=== PATIENT | female | born 1965 | race Caucasian/White ===

== ENCOUNTER 2016-10-11 16:01 | Emergency (ER) | payer OTHER ==
--- NOTE | 2016-10-11 18:44 | DIAGNOSTIC IMAGING REPORT ---
PROCEDURE: CT ABDOMEN/PELVIS W/O CONTRAST INDICATION: FLANK PAIN TECHNIQUE: Noncontrast axial images were obtained of the entire abdomen and pelvis with sagittal and coronal reformations. COMPARISON: None. FINDINGS: ABDOMEN: 2.5 mm mid left ureteral calculus with mild left hydroureteronephrosis. Mild left perinephric edema. No additional urinary calculi. Lung base are clear. Normal heart size. Hepatomegaly (20 cm) with diffuse steatosis. Contracted gallbladder. Pancreas, spleen and adrenal glands are normal. Normal abdominal aorta. Mild descending sigmoid diverticulosis. Normal appendix. Small hiatal hernia. PELVIS: Mild sigmoid diverticulosis. Uterus and adnexa are normal. Tiny air collection in the bladder lumen, possibly from instrumentation. Left buttock calcified injection granuloma. Mild degenerative changes of the spine. IMPRESSION: 1. 2.5 mm mid left ureteral calculus with mild left hydroureteronephrosis 2. Hepatomegaly and steatosis 3. Diverticulosis 4. Results discussed with Dr. Heart All CT scans at this facility use dose modulation, iterative reconstruction, and/or weight-based dosing when appropriate to reduce radiation dose to as low as reasonably achievable.
--- NOTE | 2016-10-11 19:00 | ED ORDER SUMMARY ---
..... Patient: JENA OJEDA OrderSheet [facility] VisitID: [id number] [place] [address] 51y, F Registration Date/Time: 10/11/2016 ORDER SHEET Weight: 86.1 kg (measured) Allergies: Ceclor, Penicillin GENERAL ORDERS: CBC w Diff Urgent (16:38 10/11/2016 Christi El) (Ack 16:47 LNations ER Tech1) (16:50 Adam R.N.) CMP Urgent (16:38 10/11/2016 Christi El) (Ack 16:47 LNations ER Tech1) (16:50 Adam R.N.) UA-Culture if indicated Urgent (16:38 10/11/2016 Christi El) (Ack 16:47 LNations ER Tech1) (18:15 Adam R.N.) CT Abd/Pel wo Cont (Left) Urgent (18:04 10/11/2016 Christi El) (Ack 18:13 LNations ER Tech1) (18:39 MCampbell) MEDICATION ORDERS: Flomax PO 0.4 mg (Do not crush or chew, NOW) (18:44 10/11/2016 Christi El) (Ack 18:50 Adam R.N.) (19:00 Adam R.N.) IV FLUIDS: IV NS : initial bolus none -, then 1000 mL/hr for X1 (NOW) (16:38 10/11/2016 Christi El) (16:56 Adam R.N.) Toradol IV 30 mg (NOW) (18:04 10/11/2016 Christi El) (Ack 18:13 Adam R.N.) ORDER SHEET NOTES: [Electronically signed by Darion Heart Dr. (19:05 10/11/2016)] [Electronically signed by Darian Wylie R.N. (19:12 10/11/2016)] [Electronically locked/signed by Darian Wylie R.N. (19:10/11/2016)]
--- NOTE | 2016-10-11 19:00 | ED NURSING NOTES ---
Clinical Report - Nurses [facility] [address] [place] [address] 10/11/2016 16:02 Patient: JENA OJEDA TRIAGE Triage time 16:18. Acuity: LEVEL 3. Chief Complaint: ABDOMINAL PAIN and NAUSEA. --16:25 Darian Wylie R.N. 16:18 10/11/16. BP: 135/76. HR: 73. RR: 16. O2 saturation: 96%. Temp: 98.9 F (oral). Pain level now: 01/02. --16:25 Darian Wylie R.N. Weight: 86.1 kg measured. Height/Length: 64 inches Measured. BMI: 32.6. --16:23 Darian Wylie R.N. Medications Lisinopril-Hydrochlorothiazide Oral. --16:20 Darian Wylie R.N. Norvasc Oral. --16:20 Darian Wylie R.N. Claritin Oral. --16:20 Darian Wylie R.N. Omeprazole Oral. --16:20 Darian Wylie R.N. Vitamin D Oral. --16:20 Darian Wylie R.N. Medication/allergy information source: the patient. --16:25 Darian Wylie R.N. Allergies Ceclor. --16:21 Darian Wylie R.N. Penicillin. --16:21 Darian Wylie R.N. History Arrived by private vehicle. Historian: patient. Accompanied by daughter. ( LLQ abdominal pain after eating lunch today, constant sharp pain non-radiating. nausea but no vomiting or diarrhea. Denies urinary discomfort.). This started today. Onset. (4 1/2 hours ago). She has had nausea and abdominal pain. Last oral intake by patient was lunch. 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 SURGERY HX: Dilatation & Curettage. SOCIAL HX: Never smoker. Occasional alcohol use; consumes beer occasionally and wine by the glass. No infectious disease exposure. --16:25 Darian Wylie R.N. PROBLEMS: Multiple Sclerosis. Hypertension. --16:21 Darian Wylie R.N. Interventions ID band on patient. To room. --16:25 Darian Wylie R.N. PHYSICAL ASSESSMENT Ambulatory to room. GENERAL / NEURO / PSYCH: Alert. Oriented X 4. Appears in no acute distress. Appears in pain. HEENT: Mucous membranes are pink. RESPIRATORY: Respirations not labored. Breath sounds within normal limits. CVS: Capillary refill less than 2 seconds. GI / : The patient has had nausea. Obesity. Abdomen soft. Bowel sounds within normal limits. SKIN: Skin is warm and dry. --16:25 Darian Wylie R.N. NURSING PROGRESS NOTES Patient gowned. Head of bed elevated. Patient identifiers checked. Call light placed in reach. Side rails up x 1. Bed placed in lowest position. Brakes of bed on. Patient ready for evaluation- chart flagged and ED physician and SOUS CHEF notified. --16:26 Darian Wylie R.N. 16:50 10/11/2016 Site #1 started via IV in the right antecubital space with an 20g angiocath; one attempt. Blood drawn: rainbow set. Labeled in the presence of the patient and sent to the lab. Saline lock flushed with 10 mL saline. --16:55 Darian Wylie R.N. 16:56 10/11/2016 Started IV Fluids IV NS (Saline); bolus of 1000 mL over 1 hour(s) via site #1 via IV pump. Allergies verified and confirmed 5 rights. IV patency established. IV site checked: no pain, redness, or swelling. IV flushed thoroughly pre- and post-medication administration. --16:56 Darian Wylie R.N. 18:13 10/11/2016 IV Fluids IV NS Discontinued: bag #1 infused. Total amount infused: 1000 mL. IV patency established. IV site checked: no pain, redness, or swelling. IV flushed thoroughly. --18:24 Darian Wylie R.N. 18:15 10/11/2016 Toradol IVP 30 mg given over 2 minute(s) via site #1. Allergies verified and confirmed 5 rights. IV patency established. IV site checked: no pain, redness, or swelling. IV flushed thoroughly pre- and post-medication administration. IVP given by RN. --18:15 Darian Wylie R.N. ( left back/flank pain present; abdominal pain have subsided; no nausea). Patient waiting for CT results. --18:23 Darian Wylie R.N. 18:16 10/11/16. BP: 123/58 taken on the left arm, via an automated monitor, while sitting. HR: 72. RR: 18. O2 saturation: 97%. Pain level now: 11/01. --18:23 Darian Wylie R.N. 18:59 10/11/2016 Flomax (Tamsulosin HCl) PO Capsules 0.4 mg given. Allergies verified and confirmed 5 rights. --19:00 Darian Wylie R.N. Reassessment after fluids administered. She is calm and resting quietly. Overall patient status is improved- she states feels better. ( flank pain have subsided now, states feeling a lot better). --19:01 Darian Wylie R.N. 19:06 10/11/2016 Site #1 removed upon discharge. Catheter intact. Bandaid applied. --19:11 Darian Wylie R.N. DISPOSITION / DISCHARGE Condition at departure: improved. No learning barriers present. Discharge instructions provided and reviewed with the patient. Reviewed medication(s) side effects, precautions, dosing and course information. Prescription(s) given to the patient. Reviewed referral to a primary care physician for followup. Work note given. Patient verbalized understanding. Written instructions provided in Kyrgyz. The patient was discharged home and accompanied by family. She left the Emergency Department ambulatory and via private vehicle. Spouse driving. --19:10 Darian Wylie R.N. 19:09 10/11/16. BP: 127/82. HR: 78. RR: 14. O2 saturation: 100%. Temp: 98.3 F. Pain level now: 05/04. --19:10 Darian Wylie R.N. Departure time: :11. --19:11 Darian Wylie R.N. Locked/Released at 10/11/2016 19:12 by Darian Wylie R.N.
--- NOTE | 2016-10-11 19:00 | ED CLINICAL REPORT ---
Clinical Report - Physicians/Mid Levels [facility] [address] [place] [address] 10/11/2016 16:02 Patient: JENA OJEDA Time Seen: 16:12; initial patient contact. Arrived- By private vehicle. Historian- patient. HISTORY OF PRESENT ILLNESS Chief Complaint: ABDOMINAL PAIN. At its maximum, severity described as moderate. When seen in the E.D., severity described as moderate. Modifying factors. Not worsened by anything. Not relieved by anything. It is described as sharp. No radiation. It is described as located in the left lower quadrant. This started about 3 1/2 hours ago. The patient has had nausea. No vomiting or diarrhea. Similar symptoms previously: None. Recent medical care: Not recently seen/assessed. REVIEW OF SYSTEMS No constipation, difficulty with urination, pain with urination or fever. She has had chills. All systems otherwise negative, except as recorded above. PAST HISTORY Multiple Sclerosis. Hypertension. Medications: Vitamin D Oral. Omeprazole Oral. Claritin Oral. Norvasc Oral. Lisinopril-Hydrochlorothiazide Oral. Allergies: Ceclor. Penicillin. SOCIAL HISTORY Never smoker. Occasional alcohol use. No drug use. ADDITIONAL NOTES The nursing notes have been reviewed. PHYSICAL EXAM Vital Signs: 10/11/2016 16:18 BP: 135/76. HR: 73. RR: 16. O2 saturation: 96%. Temp: 98.9 F. Pain level now: 9/10. Have been reviewed as normal. Appearance: Alert. Oriented X3. No acute distress. Eyes: Eyes normal inspection. ENT: Dry mucous membranes present. CVS: Normal heart rate and rhythm. Heart sounds normal. Respiratory: No respiratory distress. Breath sounds normal. Abdomen: Soft. Moderate tenderness in the left side of the abdomen with guarding present. No rebound tenderness. Bowel sounds normal. No organomegaly. No mass. Back: Moderate CVA tenderness on the left. Skin: Skin warm and dry. Normal skin color. Neuro: Oriented X 3. LABS, X-RAYS, AND EKG Abdominal CT: 1. 2.5 mm mid left ureteral calculus with mild left hydroureteronephrosis 2. Hepatomegaly and steatosis 3. Diverticulosis. Study type: renal stone evaluation. Abdominal CT performed without contrast. The study was independently viewed by me, interpreted by the radiologist and discussed with the radiologist. Prior studies were not available for comparison. Interpretation time: 19:02. Laboratory Tests: UA-Culture if indicated: (VICKI: 10/11/2016 18:00) ( [facility] 10/11/[place] 18:39) Final results Test Result Flag Units (Reference) URINE COLOR YELLOW URINE APPEARANCE CLEAR URINE GLUCOSE NEGATIVE (NEGATIVE) URINE BILIRUBIN NEGATIVE (NEGATIVE) URINE KETONE NEGATIVE (NEGATIVE) URINE SPECIFIC GRAVITY 1.015 (1.010-1.030) URINE PH 7.0 (5.0-8.0) URINE PROTEIN NEGATIVE (NEGATIVE) URINE UROBILINOGEN 0.2 EU/dL (0.2-1.0) URINE NITRITE NEGATIVE (NEGATIVE) URINE BLOOD 2+ (NEGATIVE) URINE LEUK ESTERASE NEGATIVE (NEGATIVE) URINE RBC 10-25 rbc/hpf (0-1) URINE WBC 1-3 wbc/hpf (0-1) URINE EPITHELIAL CELLS 1-3 EPI/hpf (0-5) URINE BACTERIA MANY (4+) (NONE SEEN) URINE COMMENT CULTURE INDICATED URINE CULTURES ARE SET-UP BASED ON THE FOLLOWING CRITERIA:POSITIVE NITRITEPOSITIVE LEUKOCYTE ESTERASEGREATER THAN 10 WHITE BLOOD CELLSMODERATE (2+) OR GREATER BACTERIA CBC w Diff: (VICKI: 10/11/2016 16:50) ( [facility] 10/11/2016 17:06) Final results Test Result Flag Units (Reference) WHITE BLOOD COUNT 8.6 K/uL (4.5-11.5) RED BLOOD COUNT 4.55 M/uL (4.00-5.20) HEMOGLOBIN 12.4 gm/dL (12.0-16.0) HEMATOCRIT 36.8 % (36.0-46.0) MEAN CELL VOLUME 81 fL (80-100) MEAN CORPUSCULAR HGB 27 pg (26-34) MEAN CORPUSCULAR HGB CONC 34 g/dL (31-37) RED CELL DISTRIBUTION WIDTH 13.4 % (11.6-14.8) PLATELET COUNT 248 K/uL (150-400) LYMPH % 17.2 L % (25-40) MONO % 2.0 L % (3-14) GRANULOCYTE % 80.8 (53-90) CMP: (VICKI: 10/11/2016 16:50) ( [facility] 10/11/2016 17:22) Final results Test Result Flag Units (Reference) GLUCOSE 131 H mg/dL (70-110) BUN 23 H mg/dL (7-18) CREATININE 1.1 mg/dL (0.6-1.3) Estimated GFR 55.66 mL/min Estimated GFR- >60 mL/min Note: Persistent reduction over 3 months in eGFR<60 mL/min/1.73 m2 defines CKD. Patients with eGFR values>=60 mL/min/1.73 m2 may also have CKD if evidence ofpersistent proteinuria. Additional information may be foundat www.kidney.org. SODIUM 142 mmol/L (136-145) POTASSIUM 3.7 mmol/L (3.5-5.1) CHLORIDE 102 mmol/L (98-107) CARBON DIOXIDE 31 mmol/L (21-32) CALCIUM 10.5 H mg/dL (8.5-10.1) TOTAL PROTEIN 8.0 g/dL (6.4-8.2) ALBUMIN 4.0 g/dL (3.3-5.0) BILIRUBIN, TOTAL 0.5 mg/dL (0.0-1.0) ALKALINE PHOSPHATASE 85 U/L (46-116) AST (SGOT) 27 U/L (15-37) ALT (SGPT) 47 U/L (12-78) . PROGRESS AND PROCEDURES Disposition: Discharged home in good and improved condition. Condition: good. CLINICAL IMPRESSION Ureterolithiasis in the left ureter with renal colic and hydronephrosis. INSTRUCTIONS Your Current Medications: CONTINUE TAKING THE FOLLOWING MEDICATIONS: Claritin Oral. Lisinopril-Hydrochlorothiazide Oral. Norvasc Oral. Omeprazole Oral. Vitamin D Oral. Prescription Medications: Hydrocodone/APAP 5mg / 325mg: take 1 orally every 6 hours as needed for pain. Dispense fifteen (15). No refill. Zofran (orally disintegrating tablets) 4 mg: take 1 orally every 6 hours as needed for nausea and vomiting. Dispense ten (10). No refill. Substitution is permissible. Flomax 0.4 mg: take 1 orally every 24 hours. Take dose every day 30 minutes after the same meal. Dispense fifteen (15). No refills. Substitution is permissible. Follow-up: Follow up with your doctor in about two days. Call for an appointment. Blood pressure screening was not performed during this visit because the patient has an active diagnosis of hypertension. (Electronically signed by Darion Heart Dr. 10/11/2016 19:06)
--- NOTE | 2016-10-11 19:00 | ED NURSING NOTES ---
Clinical Report - Nurses [facility] [address] [place] [address] 10/11/2016 16:02 Patient: JENA OJEDA TRIAGE Triage time 16:18. Acuity: LEVEL 3. Chief Complaint: ABDOMINAL PAIN and NAUSEA. --16:25 Darian Wylie R.N. 16:18 10/11/16. BP: 135/76. HR: 73. RR: 16. O2 saturation: 96%. Temp: 98.9 F (oral). Pain level now: 01/02. --16:25 Darian Wylie R.N. Weight: 86.1 kg measured. Height/Length: 64 inches Measured. BMI: 32.6. --16:23 Darian Wylie R.N. Medications Lisinopril-Hydrochlorothiazide Oral. --16:20 Darian Wylie R.N. Norvasc Oral. --16:20 Darian Wylie R.N. Claritin Oral. --16:20 Darian Wylie R.N. Omeprazole Oral. --16:20 Darian Wylie R.N. Vitamin D Oral. --16:20 Darian Wylie R.N. Medication/allergy information source: the patient. --16:25 Darian Wylie R.N. Allergies Ceclor. --16:21 Darian Wylie R.N. Penicillin. --16:21 Darian Wylie R.N. History Arrived by private vehicle. Historian: patient. Accompanied by daughter. ( LLQ abdominal pain after eating lunch today, constant sharp pain non-radiating. nausea but no vomiting or diarrhea. Denies urinary discomfort.). This started today. Onset. (4 1/2 hours ago). She has had nausea and abdominal pain. Last oral intake by patient was lunch. 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 SURGERY HX: Dilatation & Curettage. SOCIAL HX: Never smoker. Occasional alcohol use; consumes beer occasionally and wine by the glass. No infectious disease exposure. --16:25 Darian Wylie R.N. PROBLEMS: Multiple Sclerosis. Hypertension. --16:21 Darian Wylie R.N. Interventions ID band on patient. To room. --16:25 Darian Wylie R.N. PHYSICAL ASSESSMENT Ambulatory to room. GENERAL / NEURO / PSYCH: Alert. Oriented X 4. Appears in no acute distress. Appears in pain. HEENT: Mucous membranes are pink. RESPIRATORY: Respirations not labored. Breath sounds within normal limits. CVS: Capillary refill less than 2 seconds. GI / : The patient has had nausea. Obesity. Abdomen soft. Bowel sounds within normal limits. SKIN: Skin is warm and dry. --16:25 Darian Wylie R.N. NURSING PROGRESS NOTES Patient gowned. Head of bed elevated. Patient identifiers checked. Call light placed in reach. Side rails up x 1. Bed placed in lowest position. Brakes of bed on. Patient ready for evaluation- chart flagged and ED physician and SHUT OFF WORKER notified. --16:26 Darian Wylie R.N. 16:50 10/11/2016 Site #1 started via IV in the right antecubital space with an 20g angiocath; one attempt. Blood drawn: rainbow set. Labeled in the presence of the patient and sent to the lab. Saline lock flushed with 10 mL saline. --16:55 Darian Wylie R.N. 16:56 10/11/2016 Started IV Fluids IV NS (Saline); bolus of 1000 mL over 1 hour(s) via site #1 via IV pump. Allergies verified and confirmed 5 rights. IV patency established. IV site checked: no pain, redness, or swelling. IV flushed thoroughly pre- and post-medication administration. --16:56 Darian Wylie R.N. 18:13 10/11/2016 IV Fluids IV NS Discontinued: bag #1 infused. Total amount infused: 1000 mL. IV patency established. IV site checked: no pain, redness, or swelling. IV flushed thoroughly. --18:24 Darian Wylie R.N. 18:15 10/11/2016 Toradol IVP 30 mg given over 2 minute(s) via site #1. Allergies verified and confirmed 5 rights. IV patency established. IV site checked: no pain, redness, or swelling. IV flushed thoroughly pre- and post-medication administration. IVP given by RN. --18:15 Darian Wylie R.N. ( left back/flank pain present; abdominal pain have subsided; no nausea). Patient waiting for CT results. --18:23 Darian Wylie R.N. 18:16 10/11/16. BP: 123/58 taken on the left arm, via an automated monitor, while sitting. HR: 72. RR: 18. O2 saturation: 97%. Pain level now: 11/01. --18:23 Darian Wylie R.N. 18:59 10/11/2016 Flomax (Tamsulosin HCl) PO Capsules 0.4 mg given. Allergies verified and confirmed 5 rights. --19:00 Darian Wylie R.N. Reassessment after fluids administered. She is calm and resting quietly. Overall patient status is improved- she states feels better. ( flank pain have subsided now, states feeling a lot better). --19:01 Darian Wylie R.N. 19:06 10/11/2016 Site #1 removed upon discharge. Catheter intact. Bandaid applied. --19:11 Darian Wylie R.N. DISPOSITION / DISCHARGE Condition at departure: improved. No learning barriers present. Discharge instructions provided and reviewed with the patient. Reviewed medication(s) side effects, precautions, dosing and course information. Prescription(s) given to the patient. Reviewed referral to a primary care physician for followup. Work note given. Patient verbalized understanding. Written instructions provided in Moldovan. The patient was discharged home and accompanied by family. She left the Emergency Department ambulatory and via private vehicle. Spouse driving. --19:10 Darian Wylie R.N. 19:09 10/11/16. BP: 127/82. HR: 78. RR: 14. O2 saturation: 100%. Temp: 98.3 F. Pain level now: 05/04. --19:10 Darian Wylie R.N. Departure time: :11. --19:11 Darian Wylie R.N. Locked/Released at 10/11/2016 19:12 by Darian Wylie R.N.
--- NOTE | 2016-10-11 19:00 | ED ORDER SUMMARY ---
..... Patient: JENA OJEDA OrderSheet [facility] VisitID: [id number] [place] [address] 51y, F Registration Date/Time: 10/11/2016 ORDER SHEET Weight: 86.1 kg (measured) Allergies: Ceclor, Penicillin GENERAL ORDERS: CBC w Diff Urgent (16:38 10/11/2016 Christi El) (Ack 16:47 LNations ER Tech1) (16:50 Adam R.N.) CMP Urgent (16:38 10/11/2016 Christi El) (Ack 16:47 LNations ER Tech1) (16:50 Adam R.N.) UA-Culture if indicated Urgent (16:38 10/11/2016 Christi El) (Ack 16:47 LNations ER Tech1) (18:15 Adam R.N.) CT Abd/Pel wo Cont (Left) Urgent (18:04 10/11/2016 Christi El) (Ack 18:13 LNations ER Tech1) (18:39 MCampbell) MEDICATION ORDERS: Flomax PO 0.4 mg (Do not crush or chew, NOW) (18:44 10/11/2016 Christi El) (Ack 18:50 Adam R.N.) (19:00 Adam R.N.) IV FLUIDS: IV NS : initial bolus none -, then 1000 mL/hr for X1 (NOW) (16:38 10/11/2016 Christi El) (16:56 Adam R.N.) Toradol IV 30 mg (NOW) (18:04 10/11/2016 Christi El) (Ack 18:13 Adam R.N.) ORDER SHEET NOTES: [Electronically signed by Darion Heart Dr. (19:05 10/11/2016)] [Electronically signed by Darian Wylie R.N. (19:12 10/11/2016)] [Electronically locked/signed by Darian Wylie R.N. (19:10/11/2016)]
--- NOTE | 2016-10-11 19:12 | ED MAR SUMMARY ---
..... Medication Administration Record [facility] [address] [place] [address] Patient: JENA OJEDA Visit ID: [id number] 51y, F Weight: 86.1 kg Height/Length: 64 in BMI: 32.6 ALLERGIES: Penicillin, Ceclor Start 16:56 10/11/2016 Darian Wylie R.N., Stop 18:13 10/11/2016 Darian Wylie R.N. Medication Administered: IV NS (SALINE), Dose: IV Fluids, Bolus: 1000 mL over 1 hour(s), Site: #1 right AC. Medication Ordered: IV NS : initial bolus none -, then 1000 mL/hr for X1 (NOW). Given 18:15 10/11/2016 Darian Wylie R.N. Medication Administered: TORADOL [IVP], Dose: 30 mg IVP over 2 minute(s), Site: #1 right AC. Medication Ordered: Toradol IV 30 mg (NOW). Given 18:59 10/11/2016 Darian Wylie R.N. Medication Administered: FLOMAX [PO] (TAMSULOSIN HCL), Dose: 0.4 mg Capsules PO. Medication Ordered: Flomax PO 0.4 mg (Do not crush or chew, NOW).
--- NOTE | 2016-10-11 19:12 | ED DISCHARGE INSTRUCTIONS ---
Patient: JENA OJEDA General Instructions [facility] VisitID: [id number] [place] [address] 51y, F Registration Date/Time: 10/11/2016 Ureterolithiasis in the left ureter with renal colic and hydronephrosis. INSTRUCTIONS Your Current Medications: CONTINUE TAKING THE FOLLOWING MEDICATIONS: Claritin Oral. Lisinopril-Hydrochlorothiazide Oral. Norvasc Oral. Omeprazole Oral. Vitamin D Oral. Prescription Medications: Hydrocodone/APAP 5mg / 325mg: take 1 orally every 6 hours as needed for pain. Dispense fifteen (15). No refill. Zofran (orally disintegrating tablets) 4 mg: take 1 orally every 6 hours as needed for nausea and vomiting. Dispense ten (10). No refill. Substitution is permissible. Flomax 0.4 mg: take 1 orally every 24 hours. Take dose every day 30 minutes after the same meal. Dispense fifteen (15). No refills. Substitution is permissible. Follow-up: Follow up with your doctor in about two days. Call for an appointment. Blood pressure screening was not performed during this visit because the patient has an active diagnosis of hypertension. ADDITIONAL INFORMATION Kidney Stone (W/ Colic) The sharp cramping pain and nausea/vomiting that you have is due to a small stone which has formed in the kidney and is now passing down a narrow tube (ureter) on its way to your bladder. Once it reaches your bladder, the pain will stop. The stone may pass in your urine stream in one piece. [The size may be 1/16" to 1/4" (1-6mm)]. Or, the stone may also break up into lily fragments which you may not even notice. Once you have had a kidney stone, you are at risk for developing another one in the future. Home Care: Drink plenty of fluids (at least 8 to 10 glasses of water a day). Most stones will pass on their own, but may take from a few hours to a few days. Sometimes the stone is too large to pass by itself and special methods will have to be used to remove the stone. Each time you urinate, do so in a jar. Pour the urine from the jar through the strainer and into the toilet. Continue doing this until 24 hours after your pain stops. By then, if there was a kidney stone, it should pass from your bladder. Some stones dissolve into sand-like particles and pass right through the strainer. In that case, you wont ever see a stone. Save any stone that you find in the strainer and bring it to your doctor for analysis. It may be possible to prevent certain types of stones from forming. Therefore, it is important to know what kind of stone you have. Try to stay as active as possible since this will help the stone pass. Do not stay in bed unless your pain prevents you from getting up. You may notice a red, pink or brown color to your urine. This is normal while passing a kidney stone. Follow Up with your doctor or return to this facility if the pain lasts more than 48 hours. Get Prompt Medical Attention if any of the following occur: Pain that is not controlled by the medicine given Repeated vomiting or unable to keep down fluids Weakness, dizziness or fainting Fever of 100.4F (38C) or higher, or as directed by your healthcare provider Passage of solid red or brown urine (can't see through it) or urine with lots of blood clots Unable to pass urine for 8 hours and increasing bladder pressure Hydrocodone Bitartrate, Acetaminophen Oral tablet What is this medicine? ACETAMINOPHEN; HYDROCODONE (a set a DOMINIQUE dmitri fen; aleida droe KOE done) is a pain reliever. It is used to treat mild to moderate pain. How should I use this medicine? Take this medicine by mouth. Swallow it with a full glass of water. Follow the directions on the prescription label. If the medicine upsets your stomach, take the medicine with food or milk. Do not take more than you are told to take. Talk to your video manager regarding the use of this medicine in children. This medicine is not approved for use in children. What side effects may I notice from receiving this medicine? Side effects that you should report to your doctor or health career development director as soon as possible: allergic reactions like skin rash, itching or hives, swelling of the face, lips, or tongue breathing problems confusion feeling faint or lightheaded, falls stomach pain yellowing of the eyes or skin Side effects that usually do not require medical attention (report to your doctor or health career development director if they continue or are bothersome): nausea, vomiting stomach upset What may interact with this medicine? alcohol antihistamines isoniazid medicines for depression, anxiety, or psychotic disturbances medicines for sleep muscle relaxants naltrexone narcotic medicines (opiates) for pain phenobarbital ritonavir tramadol What if I miss a dose? If you miss a dose, take it as soon as you can. If it is almost time for your next dose, take only that dose. Do not take double or extra doses. Where should I keep my medicine? Keep out of the reach of children. This medicine can be abused. Keep your medicine in a safe place to protect it from theft. Do not share this medicine with anyone. Selling or giving away this medicine is dangerous and against the law. Store at room temperature between 15 and 30 degrees C (59 and 86 degrees F). Protect from light. Keep container tightly closed. Throw away any unused medicine after the expiration date. Discard unused medicine and used packaging carefully. Pets and children can be harmed if they find used or lost packages. What should I tell my health care provider before I take this medicine? They need to know if you have any of these conditions: brain tumor Crohn's disease, inflammatory bowel disease, or ulcerative colitis drink more than 3 alcohol-containing drinks per day drug abuse or addiction head injury heart or circulation problems kidney disease or problems going to the bathroom liver disease lung disease, asthma, or breathing problems an unusual or allergic reaction to acetaminophen, hydrocodone, other opioid analgesics, other medicines, foods, dyes, or preservatives or trying to get breast-feeding What should I watch for while using this medicine? Tell your doctor or health career development director if your pain does not go away, if it gets worse, or if you have new or a different type of pain. You may develop tolerance to the medicine. Tolerance means that you will need a higher dose of the medicine for pain relief. Tolerance is normal and is expected if you take the medicine for a long time. Do not suddenly stop taking your medicine because you may develop a severe reaction. Your body becomes used to the medicine. This does NOT mean you are addicted. Addiction is a behavior related to getting and using a drug for a non-medical reason. If you have pain, you have a medical reason to take pain medicine. Your doctor will tell you how much medicine to take. If your doctor wants you to stop the medicine, the dose will be slowly lowered over time to avoid any side effects. You may get drowsy or dizzy when you first start taking the medicine or change doses. Do not drive, use machinery, or do anything that may be dangerous until you know how the medicine affects you. Stand or sit up slowly. There are different types of narcotic medicines (opiates) for pain. If you take more than one type at the same time, you may have more side effects. Give your health care provider a list of all medicines you use. Your doctor will tell you how much medicine to take. Do not take more medicine than directed. Call emergency for help if you have problems breathing. The medicine will cause constipation. Try to have a bowel movement at least every 2 to 3 days. If you do not have a bowel movement for 3 days, call your doctor or health career development director. Too much acetaminophen can be very dangerous. Do not take Tylenol (acetaminophen) or medicines that contain acetaminophen with this medicine. Many non-prescription medicines contain acetaminophen. Always read the labels carefully. Ondansetron Oral disintegrating tablet What is this medicine? ONDANSETRON (on LAKIA se dom) is used to treat nausea and vomiting caused by chemotherapy. It is also used to prevent or treat nausea and vomiting after surgery. How should I use this medicine? These tablets are made to dissolve in the mouth. Do not try to push the tablet through the foil backing. With dry hands, peel away the foil backing and gently remove the tablet. Place the tablet in the mouth and allow it to dissolve, then swallow. While you may take these tablets with water, it is not necessary to do so. Talk to your video manager regarding the use of this medicine in children. Special care may be needed. What side effects may I notice from receiving this medicine? Side effects that you should report to your doctor or health career development director as soon as possible: allergic reactions like skin rash, itching or hives, swelling of the face, lips, or tongue breathing problems dizziness fast or irregular heartbeat feeling faint or lightheaded, falls fever and chills swelling of the hands and feet tightness in the chest Side effects that usually do not require medical attention (report to your doctor or health career development director if they continue or are bothersome): constipation or diarrhea headache What may interact with this medicine? Do not take this medicine with any of the following medications: -apomorphine -cisapride -dofetilide -dronedarone -pimozide -thioridazine -ziprasidone This medicine may also interact with the following medications: -carbamazepine -phenytoin -rifampicin -tramadol -other medicines that prolong the QT interval (cause an abnormal heart rhythm) What if I miss a dose? If you miss a dose, take it as soon as you can. If it is almost time for your next dose, take only that dose. Do not take double or extra doses. Where should I keep my medicine? Keep out of the reach of children. Store between 2 and 30 degrees C (36 and 86 degrees F). Throw away any unused medicine after the expiration date. What should I tell my health care provider before I take this medicine? They need to know if you have any of these conditions: heart disease history of irregular heartbeat liver disease low levels of magnesium or potassium in the blood an unusual or allergic reaction to ondansetron, granisetron, other medicines, foods, dyes, or preservatives or trying to get breast-feeding What should I watch for while using this medicine? Check with your doctor or health career development director as soon as you can if you have any sign of an allergic reaction. You have been given the following additional information: Kidney Stone W/ Colic Hydrocodone Bitartrate, Acetaminophen Oral tablet Ondansetron Oral disintegrating tablet (Electronically signed by Darion [facility] Dr. 10/11/2016 19:06)
--- NOTE | 2016-10-11 19:12 | ED MAR SUMMARY ---
..... Medication Administration Record [facility] [address] [place] [address] Patient: JENA OJEDA Visit ID: [id number] 51y, F Weight: 86.1 kg Height/Length: 64 in BMI: 32.6 ALLERGIES: Penicillin, Ceclor Start 16:56 10/11/2016 Darian Wylie R.N., Stop 18:13 10/11/2016 Darian Wylie R.N. Medication Administered: IV NS (SALINE), Dose: IV Fluids, Bolus: 1000 mL over 1 hour(s), Site: #1 right AC. Medication Ordered: IV NS : initial bolus none -, then 1000 mL/hr for X1 (NOW). Given 18:15 10/11/2016 Darian Wylie R.N. Medication Administered: TORADOL [IVP], Dose: 30 mg IVP over 2 minute(s), Site: #1 right AC. Medication Ordered: Toradol IV 30 mg (NOW). Given 18:59 10/11/2016 Darian Wylie R.N. Medication Administered: FLOMAX [PO] (TAMSULOSIN HCL), Dose: 0.4 mg Capsules PO. Medication Ordered: Flomax PO 0.4 mg (Do not crush or chew, NOW).
--- NOTE | 2016-10-11 19:13 | ED MED RECONCILIATION SUMMARY ---
Patient: JENA OJEDA Medication Reconciliation Report [facility] VisitID: [id number] [address] [place] [address] 51y, F Registration Date/Time: 10/11/2016 Weight: 86.1 kg Height/Length: 64 in. BMI: 32.6 ALLERGIES: Ceclor, Penicillin The patient's Home Medications are listed below: CONTINUE TAKING THE FOLLOWING MEDICATIONS: Claritin Oral Lisinopril-Hydrochlorothiazide Oral Norvasc Oral Omeprazole Oral Vitamin D Oral The source(s) of the original Home Medication information: patient The following Medications were given to the patient in the Emergency Department: IV NS IV Fluids bolus 1000 mL over 1 hour(s), administered: 10/11/2016 4:56:00 PM Toradol [IVP] IVP 30 mg, administered: 10/11/2016 6:15:00 PM Flomax [PO] PO 0.4 mg, administered: 10/11/2016 6:59:00 PM The following Medications were prescribed to the patient: Hydrocodone/APAP 5mg / 325mg: take 1 orally every 6 hours as needed for pain. Dispense fifteen (15). No refill. -- [facility] Dr. Zofran (orally disintegrating tablets) 4 mg: take 1 orally every 6 hours as needed for nausea and vomiting. Dispense ten (10). No refill. Substitution is permissible. -- [facility] Dr. Flomax 0.4 mg: take 1 orally every 24 hours. Take dose every day 30 minutes after the same meal. Dispense fifteen (15). No refills. Substitution is permissible. -- [facility] Dr.
--- NOTE | 2016-10-11 19:13 | ED MED RECONCILIATION SUMMARY ---
Patient: JENA OJEDA Medication Reconciliation Report [facility] VisitID: [id number] [address] [place] [address] 51y, F Registration Date/Time: 10/11/2016 Weight: 86.1 kg Height/Length: 64 in. BMI: 32.6 ALLERGIES: Ceclor, Penicillin The patient's Home Medications are listed below: CONTINUE TAKING THE FOLLOWING MEDICATIONS: Claritin Oral Lisinopril-Hydrochlorothiazide Oral Norvasc Oral Omeprazole Oral Vitamin D Oral The source(s) of the original Home Medication information: patient The following Medications were given to the patient in the Emergency Department: IV NS IV Fluids bolus 1000 mL over 1 hour(s), administered: 10/11/2016 4:56:00 PM Toradol [IVP] IVP 30 mg, administered: 10/11/2016 6:15:00 PM Flomax [PO] PO 0.4 mg, administered: 10/11/2016 6:59:00 PM The following Medications were prescribed to the patient: Hydrocodone/APAP 5mg / 325mg: take 1 orally every 6 hours as needed for pain. Dispense fifteen (15). No refill. -- [facility] Dr. Zofran (orally disintegrating tablets) 4 mg: take 1 orally every 6 hours as needed for nausea and vomiting. Dispense ten (10). No refill. Substitution is permissible. -- [facility] Dr. Flomax 0.4 mg: take 1 orally every 24 hours. Take dose every day 30 minutes after the same meal. Dispense fifteen (15). No refills. Substitution is permissible. -- [facility] Dr.
== END 2016-10-11 19:11 | disposition home or self-care (01) ==
LOC: ED SRH 16:01
DX: N13.2 Hydronephrosis with renal and ureteral calculous obstruction (principal); I10 Essential (primary) hypertension; G35 Multiple sclerosis; Z79.899 Other long term (current) drug therapy; Z88.0 Allergy status to penicillin
CPT/HCPCS: 90004; 90100; 90148; 90469; 95059